=== PATIENT | male | born 1980 | race Caucasian/White ===

== ENCOUNTER 2017-08-22 10:24 | Emergency (ER) | payer OTHER ==
[~2017-08-22] VITALS: Ht 177.8 cm; Wt 99.8 kg
[2017-08-22 10:35] VITALS: BP 144/77; Ht 177.8 cm; Wt 99.8 kg
[2017-08-22] MEDS ORDERED: ELIQUIS2.5 MG PO (11:56)
[2017-08-22] MEDS ORDERED: MIDODRINE HYDRO10 M1 PO (11:56)
[2017-08-22] MEDS ORDERED: DIGOXIN0.125 M1 PO (11:56)
== END 2017-08-22 12:09 | disposition home or self-care (01) ==
LOC: ED 10:24
DX: M25.562 Pain in left knee (principal); W22.8XXA Striking against or struck by other objects, initial encounter; Y93.89 Activity, other specified; Y92.89 Other specified places as the place of occurrence of the external cause; Y99.8 Other external cause status